=== PATIENT | female | born 1975 | race Caucasian/White ===

== ENCOUNTER 2020-09-19 09:41 | Outpatient (REF) | payer BC, SELFPAY ==
[2020-09-19 17:33] LABS: Anion Gap 11.1 mmol/L (3-11); BUN 13 mg/dL (7-18); CO2 24.9 mmol/L (21.0-32.0); CREATININE 0.7 mg/dL (0.55-1.02); Calcium 8.9 mg/dL (8.5-10.1); Calculated LDL 75 mg/dL (<100); Chloride 103 mmol/L (98-107); Cholesterol 144 mg/dL (<200); Glucose 83 mg/dL (74-106); HDL Cholesterol 62 mg/dL (40-60); Potassium 4.6 mmol/L (3.5-5.1); Sodium 139 mmol/L (136-145); Triglyceride 39 mg/dL (<150)
== END 2020-09-19 09:42 | disposition home or self-care (01) ==
LOC: NCHCN 09:41
PROVIDERS: PCP Family Medicine; Visit Provider Nurse Practitioner Family
DX: Z00.00 Encounter for general adult medical examination without abnormal findings (principal); Z13.228 Encounter for screening for other metabolic disorders; Z13.220 Encounter for screening for lipoid disorders
CPT/HCPCS: 80048; 80061

== ENCOUNTER 2020-11-08 17:08 | Outpatient (REF) | payer BC, SELFPAY ==
--- NOTE | 2020-11-08 16:30 | PAPFT_PTH ---
PATIENT: Ramila Curtis LOC: [facility] U#:[id number] AGE/SX: 45/F ROOM: RE11/08/[address]: Charissa Mckeon : 1975 BED: DIS: 11/08/2020 SPEC #: [id number] RECD: 11/09/20 12:56 STATUS: SHANIQUE REPatricio #: [id number] CARYN: 11/08/20 16:[address]: Charissa Mckeon DEPT: [facility] Cytology RECD BY: Yokasta Knight ENTERED: 11/09/20 12:57 SP TYPE: PAPFT OTHR DR: Deepa Gray Tissues: 1 - CX/ENDOCX FOR PAP SMEARS Procedures: PAP THIN PREP/UVM Screening HPV DNA PROBE Comments: [id number]
== END 2020-11-08 17:09 | disposition home or self-care (01) ==
LOC: NCHCN 17:08
PROVIDERS: PCP Family Medicine; Visit Provider Nurse Practitioner Family
DX: Z00.00 Encounter for general adult medical examination without abnormal findings (principal); Z12.4 Encounter for screening for malignant neoplasm of cervix; Z11.51 Encounter for screening for human papillomavirus (HPV)
CPT/HCPCS: 88142; 87624

== ENCOUNTER → 2022-01-25 01:06 | Outpatient (CLI) | payer BC, SELFPAY ==
--- NOTE | 2022-01-25 | DI.MAMMO_ITS ---
Exam(s) MAMMO SCREENING EXAM: MAMMO SCREENING CLINICAL HISTORY: SCREENING, Z12.39. TECHNIQUE: Bilateral full field digital CC and MLO mammographic images were obtained with 3D tomosyn thesis and utilizing computer aided detection (CAD). COMPARISON: None. Baseline mammogram on 46-year-old patient. FINDINGS: Fibroglandular tissue pattern is very dense, this somewhat decreasing the sensitivity mammogram for f inding hidden underlying lesions. There are no obvious spiculated masses. Numerous benign-appearing microcalcifications are seen in tameka th breasts. There are no malignant-appearing microcalcification groups. There is no significant architectural distortion nor skin thickening-retraction. IMPRESSION: Dense bilateral fibroglandular tissue. No obvious radiographic evidence of malignancy. Given the de nsity of this patient's fibroglandular tissue and significant family history I feel would be prudent to perform screening bilateral breast ultrasound BI-RADS Category 0 - Assessment Incomplete: Need additional imaging evaluation Breast Density - Category D - Extremely dense Breast density Category C or D implies that the patient has dense breast tissue. Dense breast tissue can make it harder to find cancer on a mammogram. Dense breast tissue is also associated with an incr eased risk of breast cancer. This information about the result of the mammogram report was provided to the patient to raise their awareness. Use this report when you speak with the patient about their risks for breast cancer, which includes their family history. At that time, you may recommend additional screening tests (Ultrasoun d or MRI) as these tests may add significant information. A negative radiographic report should not delay biopsy if a dominant or clinically suspicious mass is present. Up to ten percent of cancers are not identified on mammography. A negative report may reinforce clinical impression. Adenosis and dense breasts may obscure an underlying neoplasm. False positive reports average 6 to 10%. Patient will receive a letter notifying them of these results.
== END ==
PROVIDERS: PCP Family Medicine; Visit Provider Nurse Practitioner Family
DX: Z12.31 Encounter for screening mammogram for malignant neoplasm of breast (principal); R92.0 Mammographic microcalcification found on diagnostic imaging of breast; Z80.3 Family history of malignant neoplasm of breast
CPT/HCPCS: 77063; 77067

== ENCOUNTER → 2022-02-04 02:05 | Outpatient (CLI) | payer BC, SELFPAY | PROVIDERS: PCP Family Medicine; Visit Provider Nurse Practitioner Family ==

== ENCOUNTER → 2023-05-28 02:19 | Outpatient (CLI) | payer BC, SELFPAY ==
--- NOTE | 2023-05-28 08:55 | DI.MAMMO_ITS ---
Exam(s) MAMMO SCREENING EXAM: MAMMO SCREENING CLINICAL HISTORY: SCREENING, Z12.39,FAMILY H/O BREAST CA,Z80.3. TECHNIQUE: Bilateral full field digital CC and MLO mammographic images were obtained with 3D tomosyn thesis and utilizing computer aided detection (CAD). COMPARISON: 2021 FINDINGS: Masses/Architectural Distortion: None seen. Microcalcifications: No suspicious pleomorphic-type are seen. Scattered bilateral benign calcificat ions again noted. Skin Thickening/Nipple Retraction: None. IMPRESSION: 1. No significant interval change with no specific features of malignancy noted. 2. Unless there is more urgent need, annual screening mammography is recommended, as per [place] [employer] guidelines. BI-RADS Category 2 - Benign Findings Breast Density - Category D - extremely dense Breast Density Category D: The mammogram demonstrates the patient's breast tissue is dense. Dense eugenia ast tissue is very common and is not abnormal but dense breast tissue can make it harder to find canc er on a mammogram. Also, dense breast tissue may increase their breast cancer risk. This information about the result of the mammogram report was provided to the patient to raise their awareness. Use th is report when you speak with the patient about their risks for breast cancer, which includes their f amily history. At that time, you may recommend for more screening tests (Ultrasound or MRI) as they m ight be useful based on their risk. A negative radiographic report should not delay biopsy if a dominant or clinically suspicious mass is present. Up to ten percent of cancers are not identified on mammography. A negative report may reinforce clinical impression. Adenosis and dense breasts may obscure an underlying neoplasm. False positive reports average 6 to 10%.
== END ==
PROVIDERS: PCP Family Medicine; Visit Provider Nurse Practitioner Family
DX: Z12.31 Encounter for screening mammogram for malignant neoplasm of breast (principal); R92.343 Mammographic extreme density, bilateral breasts; Z80.3 Family history of malignant neoplasm of breast
CPT/HCPCS: 77063; 77067

== ENCOUNTER 2023-09-07 10:57 | Emergency (ER) | payer BC, SELFPAY ==
[2023-09-07 11:06] VITALS: BP 133/69; PULSE 96; RESP 20; TEMP 36.8; O2SAT 100
--- NOTE | 2023-09-07 11:45 | DI.CT_ITS ---
Exam(s) CT ABDOMEN PELVIS W EXAM: CT ABDOMEN PELVIS W CLINICAL HISTORY: right sided abdominal pain. TECHNIQUE: Imaging Protocol: Axial computed tomography images with coronal and sagittal reformatted images were created and reviewed CONTRAST MATERIAL: Intravenous: Omnipaque 350 Contrast volume:100 ml Oral: yes / no COMPARISON: No exams were available for comparison FINDINGS: ABDOMEN and PELVIS: Lung Bases: No acute findings. Liver: Normal density. No measurable mass. Gallbladder and biliary tract: No radiodense calculus or dilation. Pancreas: Normal density. No abnormal calcifications or inflammatory process. No evidence of mass. Spleen: Normal. Kidneys: Normal size, contour and axis. No radiodense stones. No obstructive uropathy. No suspicious masses seen. Adrenal glands: No masses seen. Vasculature: Abdominal aorta non-dilated. Soft tissues: Unremarkable. Bladder: No gross wall thickening. No calculi.No focal mass. Bowel: Large quantity of stool in the majority of the colon, with the exception of the cecum. There is marked inflammation wall thickening involving the ascending colon 2 hepatic flexure. No obstructi on. No small bowel wall thickening or abnormal distension. Appendix normal. Peritoneal cavity: Fluid seen low in pelvis. No focal collection . Bones: Unremarkable for age. Reproductive organs: Within normal limits. Left ovarian dominant follicle. Lymph nodes: Unremarkable. IMPRESSION:: Findings consistent with colitis of the ascending colon and to hepatic flexure. Append ix appears normal. Small amount of fluid in pelvis and right paracolic gutter. No abscess. RADIATION DOSE DELIVERED: Total DLP DATA REPOSITORY: All CT scans at this facility are submitted to the National Radiology Data Registry (NRDR) Dose Index Registry (DIR) with the [employer] [place] [employer] (ACR). RADIATION OPTIMIZATION: All CT scans at this facility use at least one of these dose optimization te chniques: automated exposure control; mA and/or kV adjustment per patient size (includes targeted exa ms where dose is matched to clinical indication); or iterative reconstruction.
--- NOTE | 2023-09-07 11:54 | W.ED.GENAD ---
HPI General Date/Time Provider Initiated Documentation: 09/07/23 11:53. Limitations to Documentation: no limitations. Information obtained by: patient and RN notes reviewed. History of Present Illness 48 year old F presents to the emergency department with the chief complaint of right sided abdominal pain, described as moderate, with intensity rated at 6. Quality is described as aching, and is localized to the abdomen. Patient reports no radiation. Patient started experiencing this day(s) (4-5) and it has been constant. Immobilization improves symptom(s), Movement worsens symptoms (bumps in car) . Patient notes loss of appetite; denies chest pain, cough, fever/chills, nausea/vomiting and shortness of breath. Patient did receive the following treatments prior to arrival, none Related Data Home Medications Medication Instructions Recorded Confirmed fluconazole 150 mg tablet 150 mg PO ONCE #1 tab 09/07/23 metronidazole 500 mg tablet 500 mg PO TID 10 days #30 tabs 09/07/23 sulfamethoxazole 800 1 tab PO BID 10 days #20 tabs 09/07/23 mg-trimethoprim 160 mg tablet Previous Rx's Medication Instructions Recorded fluconazole 150 mg tablet 150 mg PO ONCE #1 tab 09/07/23 metronidazole 500 mg tablet 500 mg PO TID 10 days #30 tabs 09/07/23 sulfamethoxazole 800 1 tab PO BID 10 days #20 tabs 09/07/23 mg-trimethoprim 160 mg tablet Allergies Allergy/AdvReac Type Severity Reaction Status Date / Time mushroom Allergy Other (See Verified 09/07/23 11:09 Comment) General Stated Complaint: Abd Prob BUCK: 3 Review of Systems Constitutional Constitutional: Reports as per HPI, Denies chills and Denies fever(s) Cardiovascular Cardiovascular: Reports as per HPI, Denies chest pain and Denies dyspnea Respiratory Respiratory: Reports as per HPI, Denies cough and Denies dyspnea Gastrointestinal Gastrointestinal: Reports as per HPI Musculoskeletal Musculoskeletal: Reports as per HPI and Denies back pain Integumentary/Breasts Skin/Breast: Reports as per HPI and Denies rash Neurologic Neurologic: Reports as per HPI Exam Const General: cooperative, healthy appearing, comfortable, no acute distress and well developed Nutritional Appearance: average body habitus and well nourished Orientation: alert and awake HENMT Head: normal to inspection Mouth: moist mucous membranes Resp Effort & Inspection: normal respiratory effort, able to speak in complete sentences and no respiratory distress Auscultation: clear to auscultation bilaterally, no rales, no rhonchi and no wheezes Cardio Rate: regular rate Rhythm: regular rhythm Heart Sounds: S1 normal and S2 normal GI Inspection: normal to inspection Palpation: soft, no hepatosplenomegaly, guarding, no hernias, no masses, not rigid and tender in the RUQ and Roy's sign positive; not at McBurney's point, not periumbilically, psoas sign negative and with no rebound tenderness Percussion: normal to percussion Auscultation: hypoactive bowel sounds Back/Spine/Pelvis Back: no CVA tenderness Skin General skin exam: no rashes or lesions noted Trauma: no lacerations or abrasions Neuro General: patient alert and patient awake Cognition: normal cognition Speech: speech normal Gait: normal gait Course Vital Signs Vital signs: Vital Signs Temperature 36.8 C 09/07/23 11:06 Pulse 96 H 09/07/23 11:06 Respiratory Rate 20 09/07/23 11:06 Blood Pressure 133/69 09/07/23 11:06 Pulse Oximetry 100 09/07/23 11:06 Temperature 36.8 C 09/07/23 11:06 Temperature Source Oral 09/07/23 11:06 Pulse 96 H 09/07/23 11:06 Respiratory Rate 20 09/07/23 11:06 Respiratory Effort Normal, Non-Labored 09/07/23 11:18 Blood Pressure 133/69 09/07/23 11:06 Blood Pressure Position Sitting 09/07/23 11:06 Pulse Oximetry 100 09/07/23 11:06 Oxygen Delivery Method Room Air 09/07/23 11:06 Oxygen Flow Rate 0 09/07/23 11:06 Pain Level 6 09/07/23 11:06 Medical Decision Making Patient is a pleasant 48-year-old female, otherwise healthy, presenting today with chief complaint of right-sided abdominal pain that began 4 days ago. She reports that initially pain was nonfocal, felt more like gas pain. However, the pain became more and more localized to the right side of the abdomen. She denies any nausea or vomiting but states that her appetite has greatly diminished, has not had much to eat in the last 24 hours. This atypical for the patient. Pain is not worsened with food. Her last bowel movement was 2 days ago. Denies any abnormal vaginal discharge. Denies , states that she is not having intercourse. No change in urinary habits. Denies any back pain. No previous abdominal surgeries. On exam, patient appears nontoxic. Resting comfortably. She is slightly tachycardic heart rate of 96. Lungs are clear, normal cardiac exam otherwise. Abdomen is tender along the right side, more in the right upper and mid area. No pain over McBurney's point. Pain is more in the upper area, more concerning for gallbladder. She does have a positive Roy's. Patient's exam is more consistent with gallbladder pathology. However, her history of more consistent and progressive pain, no change in p.o. intake, has been more concerned for an appendicitis. Considered a flipped appendix that is not the classic location. I feel that moving forward with CT is appropriate at this time. Also obtain baseline labs. No alcohol intake. Labs significant for WBC 12.3, ketones and blood in urine. FINDINGS: Lungs: Lung bases are clear. Pleural effusion is not seen. Liver: There mild fatty infiltration of the liver. There is a tiny focus of low attenuation left lobe of the liver measuring approximately 4 mm in diameter likely a small cyst. No other focal intrahepatic abnormality is identified. Gallbladder and bile ducts: No calcified gallstones. Possible mild gallbladder wall thickening. There is no significant biliary ductal dilatation. Pancreas: Pancreas is unremarkable Spleen: Spleen is unremarkable Adrenal glands: Adrenals are unremarkable Kidneys and ureters: No radiopaque urinary tract calculi. No hydronephrosis. Stomach and bowel: Evaluation of the bowel is limited in the absence of oral contrast. There is possible wall thickening involving the colon particularly at the hepatic flexure and involving the proximal transverse colon.. Findings could be related to colitis or enteritis. There is no evidence of bowel obstruction. There is no discrete mass or pneumatosis.Appendix: The appendix is visualized in the right lower quadrant and contains air. There is no evidence of acute appendicitis. Intraperitoneal space: Small amount of ascites is noted in the right abdomen particularly adjacent to the right colon, and the paracolic gutter. Ascites is also seen in the pelvic cul-de-sac. No drainable collection. No free intraperitoneal air. Vasculature: Unremarkable. No abdominal aortic aneurysm. Lymph nodes: Unremarkable. No enlarged lymph nodes. Urinary bladder: The bladder is nondistended. Apparent bladder wall thickening may be due to lack of distension. Reproductive: There are small nabothian cysts within the cervix. The uterus is anteverted. There is a dominant cyst/follicle within the left ovary measuring approximately 2.6 cm in diameter on series 5, image 629. There is no evidence of a solid adnexal mass. Bones/joints: There is no acute bony abnormality Soft tissues: Subcutaneous soft tissues are unremarkable IMPRESSION: 1. Small amount of ascites particularly within the right abdomen, pelvis. No discrete or drainable collection or abscess. 2. Evaluation of the bowel is limited without oral contrast but there is possible wall thickening involving the colon particularly right colon at the hepatic flexure, proximal transverse colon.. Findings could be related to colitis or enteritis. No evidence of bowel obstruction. 3. Left adnexal cyst likely physiologic in a patient of this age. Will consult with general surgery. General surgery reveiwed the imaging, they advised more diffuse. advised PO abx x 1 week, stool softener, outpatient f/u with plan for colonoscopy. They advised Mirilax. They came to see the patient, gave card and number to call to ensure that joy will get colonoscopy in about a month. Discussed plan with patient. She will begin abx, will use Bactrim and Flagyl per UTD. She states she gets vaginal yeast infections with abx, will prescribe fluconazole. Encouraged probiotics. Return precautions discussed. Encoruaged hyration. All of her questions and concerns were addressed, she is in agreement with this plan. Quality:[facility] Health Related Social Needs: No Data to Display PFSH All Active Problems (Updated 09/07/23 @ 14:45 by ALLEN Leonard) Constipation (Acute) Colitis (Acute) Abdominal pain (Acute) Social History Smoking/Tobacco Use Status: Never Smoking risk assessment performed?: Yes Alcohol Intake: never Substance use type: does not use Discharge Plan Disposition Patient Disposition: Home Condition: Good Discharge Details Clinical Impression: Colitis, Abdominal pain, Constipation Primary Care Provider: Eunice Hong ED Provider: Shonna Carney Home Meds and New Rx's Prescriptions: New sulfamethoxazole-trimethoprim 800-160 mg tablet 1 tab PO BID 10 Days Qty: 20 0RF metronidazole 500 mg tablet 500 mg PO TID 10 Days Qty: 30 0RF fluconazole 150 mg tablet 150 mg PO ONCE Qty: 1 0RF Rx Instructions: as a single dose Discharge Instructions Instructions: Constipation (ED), Abdominal Pain (ED) Additional Instructions: Your imaging is concerning for colitis which is inflammation of the colon. This is often infectious, general surgery team recommends oral antibiotics. These have been sent to your pharmacy. Please encourage hydration. Please take a probiotic while you are taking this. If you develop yeast infection, fluconazole has also been sent to your pharmacy. You can take this if symptoms develop. Once the acute inflammation is improved, you will need a colonoscopy. A referral to surgical team has been sent. You were noted to be constipated which may be contributing to your discomfort. Please take Miralax for this, it is available over the counter. Take as directed on the packaging. If you develop fevers/chills, increased pain, inability to stay hydrated or other new/worsening symptoms, please seek care urgently once again. Otherwise, please follow up with surgical team in the next 2 weeks. Stand Alone Forms: Work Release Referrals: Eunice Hong [Primary Care Provider] - Discharge Data Discharge Date/Time-TO BE ENTERED AT DEPARTURE: 09/07/23 15:09
[2023-09-07] MEDS: Normal Saline 1,000 ML 1000 ML IV (12:09)
[2023-09-07 12:13] LABS: Abs Immature Grans 0.04 10^3/uL (0.0-0.06); Absolute Basophil Count 0.06 10^3/uL (0.0-0.2); Absolute Eosinophil Count 0.07 10^3/uL (0.0-0.7); Absolute Lymphocyte Count 2.05 10^3/uL (1.2-3.4); Absolute Monocyte Count 0.72 10^3/uL (0.1-0.8); Basophils % 0.5; Eosinophils % 0.6; HCT 38.9 % (36.0-46.0); HGB 12.8 g/dL (11.2-15.7); Immature Grans % 0.3; Lymphocytes % 16.6; MCH 29.5 pg (27.0-33.0); MCHC 32.9 % (32.0-36.0); MCV 90 fL (80-95); MPV 12.1 fL (8.0-11.0); Monocytes % 5.8; Neutrophils % 76.2; Platelet Count 240 10^3/uL (130-400); RBC 4.34 10^6/uL (3.93-5.22); RDW 13.1 % (11.7-14.6); WBC 12.33 10^3/uL (4.4-10.8)
[2023-09-07 12:28] LABS: ALT 48 U/L (14-59); AST 33 U/L (15-37); Albumin 3.6 g/dL (3.4-5.0); Alkaline Phosphatase 68 U/L (46-116); Anion Gap 9.8 mmol/L (3-11); BUN 7 mg/dL (7-18); Bilirubin, Total 0.8 mg/dL (0.2-1.0); CO2 27.2 mmol/L (21.0-32.0); CREATININE 0.7 mg/dL (0.55-1.02); Calcium 8.9 mg/dL (8.5-10.1); Chloride 102 mmol/L (98-107); Estimated GFR 107.28 (mL/min/1.73m2); Glucose 97 mg/dL (74-106); Lipase 30 U/L (16-77); Magnesium 2.1 mg/dL (1.8-2.4); Potassium 3.5 mmol/L (3.5-5.1); Sodium 139 mmol/L (136-145); Total Protein 7.8 g/dL (6.4-8.2)
[2023-09-07 12:32] LABS: Bilirubin Negative (Negative); Blood Trace-lysed (Negative); Clarity Clear (Clear); Glucose Negative (Negative); Ketones 15 mg/dL (Negative); Leukocyte Esterase Negative (Negative); Nitrite Negative (Negative); Specific Gravity 1.015 (1.005-1.025); Urobilinogen 0.2 mg/dL (Up to 0.2); pH 6.5 (5-8)
[2023-09-07] MEDS: Omnipaque 350 MG/ML 100 ML BTL IJ (12:35)
[2023-09-07] MEDS: Normal Saline - Diluent 50 ML VIAL IJ (12:35)
[2023-09-07 12:40] LABS: Bacteria Negative HPF (Negative); C & S Indicated? No; Casts Negative LPF (Negative); Crystals Negative HPF (Negative); Epithelial Cells Many HPF (Negative); Mucus Negative (Negative); WBC 0-2 HPF (0-5)
--- NOTE | 2023-09-07 13:05 | DI.VRAD_ITS ---
PROCEDURE INFORMATION: Exam: CT Abdomen And Pelvis With Contrast Exam date and time: 09/07/2023 12:30 PM Age: 48 years old Clinical indication: Other: Right sided abdominal pain TECHNIQUE: Imaging protocol: Computed tomography of the abdomen and pelvis with contrast. Radiation optimization: All CT scans at this facility use at least one of these dose optimization techniques: automated exposure control; mA and/or kV adjustment per patient size (includes targeted exams where dose is matched to clinical indication); or iterative reconstruction. Contrast material: OMNI 350; Contrast volume: 100 ml; Contrast route: INTRAVENOUS (IV); COMPARISON: No relevant prior studies available. FINDINGS: Lungs: Lung bases are clear. Pleural effusion is not seen. Liver: There mild fatty infiltration of the liver. There is a tiny focus of low attenuation left lobe of the liver measuring approximately 4 mm in diameter likely a small cyst. No other focal intrahepatic abnormality is identified. Gallbladder and bile ducts: No calcified gallstones. Possible mild gallbladder wall thickening. There is no significant biliary ductal dilatation. Pancreas: Pancreas is unremarkable Spleen: Spleen is unremarkable Adrenal glands: Adrenals are unremarkable Kidneys and ureters: No radiopaque urinary tract calculi. No hydronephrosis. Stomach and bowel: Evaluation of the bowel is limited in the absence of oral contrast. There is possible wall thickening involving the colon particularly at the hepatic flexure and involving the proximal transverse colon.. Findings could be related to colitis or enteritis. There is no evidence of bowel obstruction. There is no discrete mass or pneumatosis. Appendix: The appendix is visualized in the right lower quadrant and contains air. There is no evidence of acute appendicitis. Intraperitoneal space: Small amount of ascites is noted in the right abdomen particularly adjacent to the right colon, and the paracolic gutter. Ascites is also seen in the pelvic cul-de-sac. No drainable collection. No free intraperitoneal air. Vasculature: Unremarkable. No abdominal aortic aneurysm. Lymph nodes: Unremarkable. No enlarged lymph nodes. Urinary bladder: The bladder is nondistended. Apparent bladder wall thickening may be due to lack of distension. Reproductive: There are small nabothian cysts within the cervix. The uterus is anteverted. There is a dominant cyst/follicle within the left ovary measuring approximately 2.6 cm in diameter on series 5, image 629. There is no evidence of a solid adnexal mass. Bones/joints: There is no acute bony abnormality Soft tissues: Subcutaneous soft tissues are unremarkable IMPRESSION: 1. Small amount of ascites particularly within the right abdomen, pelvis. No discrete or drainable collection or abscess. 2. Evaluation of the bowel is limited without oral contrast but there is possible wall thickening involving the colon particularly right colon at the hepatic flexure, proximal transverse colon.. Findings could be related to colitis or enteritis. No evidence of bowel obstruction. 3. Left adnexal cyst likely physiologic in a patient of this age. Dictated and Authenticated by: Jacey Cooney MD. Ordering:IDA Kilpatrick MD
--- NOTE | 2023-09-07 14:31 | NUR.NOTE ---
Referral Faxed to [facility] for Pt to schedule a Colonoscopy in about a month.
--- NOTE | 2023-09-07 14:33 | W.SURGCON ---
Date of service: 09/07/23 Time of Service: 14:33 Assessment and Plan Assessment and plan (1) Abdominal pain: Status: Acute Assessment and plan: Patient reportedly HD stable and with focal tenderness without peritoneal signs. Labwork unremarkable - minimal leukocytosis with no shift. I reviewed the CT scan images. Ascending colon in and thru the flexure and into the proximal transverse colon is thickened and lumen diameter is small. No free air. Small amount of free fluid. Cecum looks unaffected as does the appendix. Ddx: Inflammatory bowel disease, colon cancer, R-sided diverticulitis, ischemic colitis unlikely at hepatic flexure but possible, less-likely infectious colitis. Recommend: #5-7 day course of oral abx #Oral OTC laxatives #Colonoscopy in 4-6 weeks - should call and schedule it tomorrow thru the surgery office. # if pain worsens(5 days already) or obstructive symptoms(vomiting and distention) develop, should return to the ED History of Present Illness Narrative: Called by ED physician for patient with CT scan findings concerning for colitis. By report, patient has 5 days of abdominal pain. No diarrhea. Some constipation. PFSH All Active Problems (Updated 09/07/23 @ 14:34 by Robel Weinstein MD) Abdominal pain (Acute) Social History Smoking/Tobacco Use Status: Never Smoking risk assessment performed?: Yes Alcohol Intake: never Substance use type: does not use Results Last Vital Signs Temp 98.2 F 09/07/23 11:06 Pulse 96 H 09/07/23 11:06 Resp 20 09/07/23 11:06 BP 133/69 09/07/23 11:06 Pulse Ox 100 09/07/23 11:06 Labs 09/07/23 11:15 09/07/23 11:15 Labs: Laboratory Results - last 24 hr 09/07/23 09/07/23 11:15 12:15 WBC 12.33 H RBC 4.34 Hgb 12.8 Hct 38.9 MCV 90 MCH 29.5 MCHC 32.9 RDW 13.1 Plt Count 240 MPV 12.1 H Immature Gran % 0.3 Neutrophils % 76.2 Lymphocytes % 16.6 Monocytes % 5.8 Eosinophils % 0.6 Basophils % 0.5 Nucleated RBC % 0.0 Absolute Neutrophils 9.40 H Absolute Lymphocytes 2.05 Absolute Monocytes 0.72 Absolute Eosinophils 0.07 Absolute Basophils 0.06 Sodium 139 Potassium 3.5 Chloride 102 Carbon Dioxide 27.2 Anion Gap 9.8 BUN 7 Creatinine 0.7 Est GFR (CKD-EPI 2020) 107.28 Glucose 97 Calcium 8.9 Magnesium 2.1 Total Bilirubin 0.8 AST 33 ALT 48 Alkaline Phosphatase 68 Total Protein 7.8 Albumin 3.6 Lipase 30 Urine Color Yellow Urine Clarity Clear Urine pH 6.5 Ur Specific [place] 1.015 Urine Protein Negative Urine Ketones 15 H Urine Blood Trace-lysed H Urine Nitrite Negative Urine Bilirubin Negative Urine Urobilinogen 0.2 Ur Leukocyte Esterase Negative Urine RBC 3-5 H Urine WBC 0-2 Ur Epithelial Cells Many Urine Crystals Negative Urine Bacteria Negative Urine Casts Negative Urine Mucus Negative Ur Culture Indicated? No Urine Glucose Negative
== END 2023-09-07 15:09 | disposition home or self-care (01) ==
PROVIDERS: Emergency Provider Physician Assistant; PCP Nurse Practitioner Family
DX: R10.11 Right upper quadrant pain (principal); K52.9 Noninfective gastroenteritis and colitis, unspecified; K59.00 Constipation, unspecified
CPT/HCPCS: 00123; 36415; 80053; 83690; 96360; 99285; 74177; 81003; 81015; 83735; 85025; 99284; J3490

== ENCOUNTER 2023-10-20 11:28 | Day surgery (SDC) | payer BC, SELFPAY ==
--- NOTE | 2023-10-20 11:56 | W.ANESPRE ---
General Info Date of Service Date Performed: 10/20/23 Height: 5 ft 3 in Weight: 47.287 kg Body Mass Index (BMI): 18.4 Surgical Procedure: Operation Date: 10/20/23 13:05 Proposed Procedure Side Surgeon p Manish Weinstein MD Meds Allergies and Home Medications Allergies Allergy/AdvReac Type Severity Reaction Status Date / Time mushroom AdvReac gas Verified 10/20/23 11:55 Current Visit Medications: Current Medications Generic Name Dose Route Start Last Admin Trade Name Freq PRN Reason Stop Dose Admin Ringer's Solution 1,000 mls @ 80 mls/hr 10/20/23 06:00 IV 11/16/23 23:59 INFUSION KETTY IV Miscellaneous Supplies 1 each 10/20/23 06:00 Iv Access IV 11/16/23 23:59 DIRECTED KETTY Sodium Chloride 0 ml 10/20/23 06:00 Normal Saline Flush 10 Ml Syr IV 11/16/23 23:59 PRN PRN Sodium Chloride 0 ml 10/20/23 06:00 Normal Saline 10 Ml Vial IJ 11/16/23 23:59 DIRECTED PRN Sterile Water 0 ml 10/20/23 06:00 Water,Injection,Sterile 10 Ml Vial IJ 11/16/23 23:59 DIRECTED PRN PFSH Surgical History Surgical History History of loop electrical excision procedure (LEEP) Hx of wisdom tooth extraction Tobacco Smoking/Tobacco Use Status: Never Alcohol Alcohol Intake: never Substance Use Substance use: Never Substance use type: does not use Vital Signs and Lab Results Vital Signs Most Recent Vital Signs in EMR: Temp Pulse Resp BP Pulse Ox 36.7 C 67 16 118/77 100 10/20/23 11:58 10/20/23 11:58 10/20/23 11:58 10/20/23 11:58 10/20/23 11:58 Lab Results Blood Type / Crossmatch: No Data to Display Complete Blood Count: No Data to Display Complete Metabolic Panel: No Data to Display Liver Function Panel: No Data to Display Coagulation Panel: No Data to Display Cardiac Panel: No Data to Display Arterial Blood Gas: No Data to Display Venous Blood Gas: No Data to Display Pancreas Panel: No Data to Display Thyroid Panel: No Data to Display Infectious Disease: No Data to Display Blood Cultures: No Data to Display Toxicology Panel: No Data to Display Panel: No Data to Display Anesthesia Assessment and Plan Anesthesia History Personal History: No History of Anesthesia Complications Family History: No Family History of Anesthesia Complications Exercise Tolerance Exercise Tolerance: Metabolic Equivalents>4 Pertinent Negatives Pertinent Negatives: No Symptoms of GERD Cardiac & Pulmonary Exam Cardiac Exam: Normal S1/S2 Heart Sounds Pulmonary Exam: Clear Bilateral Breath Sounds Implantable Cardiac Device Does patient have a Pacemaker or an ICD?: No Airway Exam Known Difficult Airway: No Mallampati Class: 1 Mouth Opening: Normal (> 3cm) Thyromental Distance: Greater than 3 cm Neck Range of Motion: Full ROM Neck Circumference: Normal Teeth Condition: Normal Dentition ASA Classification ASA Score: ASA 1 Emergency Case?: No NPO Status NPO Status: NPO Clears >2 hours, Solids >8 hours Status Status: Negative HCG Anesthesia Plan Resuscitation Status: Full Code Anesthesia Technique: General Anesthesia Airway Planned: Natural Airway Monitors Used: Standard Monitors
[2023-10-20 11:58] VITALS: BP 118/77; PULSE 67; RESP 16; TEMP 36.7; O2SAT 100
[2023-10-20] MEDS: Lactated Ringers 1,000 ML 80 ML IV (12:16)
--- NOTE | 2023-10-20 12:26 | COLE_ITS ---
Date of service: 10/20/23 Time of Service: 12:26 Colonoscopy Report Procedure Description: PROCEDURES PERFORMED: 1. Colonoscopy with cold forceps biopsies PREOPERATIVE DIAGNOSIS: Diagnostic colonoscopy POSTOPERATIVE DIAGNOSIS: Hepatic flexure diverticulosis SURGEON: Laura Weinstein MD INDICATION for procedure: The patient is a 48-year-old woman who has never had a colonoscopy before. She has had a couple of episodes of right upper quadrant abdominal discomfort which has shown some inflammation near and around the hepatic flexure of unknown significance. She has never had intra-abdominal surgery before. She does not have a family history of colon cancer. FINDINGS: The terminal ileum was normal. No polyps were found. No lesions. No inflammation. At the hepatic flexure is an isolated 10 cm segment of diverticular disease. It is highly unusual because it is isolated to only this location. There is no diverticular disease in the left colon or the sigmoid colon. The cecum and proximal ascending colon is also uninvolved. It is all in and around and about the hepatic flexure. I took cold forceps biopsies of the terminal ileum as well as random colon biopsies in various places of the mucosa though it looked normal visually. SURVEILLANCE interval/FOLLOW-UP: I advised the patient and educated the patient about right?sided diseases including appendicitis and cholecystitis. She may have future attacks of pain in this location and it is unusual, her diagnosis in this location that is. For colorectal cancer surveillance, she should have another colonoscopy in 10 years. SPECIMENS: yes EBL: Minimal COMPLICATIONS: None QUALITY of prep: Excellent Procedure in detail: The patient gave written consent and was in agreement with the indications, the potential risks as well as the benefits of the procedure. They were taken to the endoscopy suite and laid in the left lateral decubitus position. A timeout was performed and anesthesia was administered which was tolerated well. I started the procedure. Digital rectal and visual examination was performed and grossly within normal limits. A well-lubricated flexible colonoscope was then introduced and passed without any notable difficulty all the way to the cecum identified by the il eocecal valve and the appendiceal orifice. The terminal ileum was intubated and looked normal. The scope was then slowly withdrawn with the above-noted findings. The patient tolerated the procedure well and was taken to the PACU in hemodynamically stable condition.
[2023-10-20 12:27] VITALS: BMI 18.4
--- NOTE | 2023-10-20 12:27 | PDOC.DSDIS_ITS ---
Date of service: 10/20/23 Time of Service: 12:27 Discharge Plan Disposition Patient Disposition: Home Condition: Good Discharge Details Attending Provider: Robel Weinstein Primary Care Provider: Eunice Hong Discharge Instructions Additional Instructions: FINDINGS: Diverticular disease was found at that corner of your colon. This is highly unusual in location. The disease is extremely common, benign, and nothing would otherwise need to be done about it. In your case it is extremely unusual where it is located but nonetheless, this is a benign condition. Nothing should be done about this at this time. If you continue to have recurrent attacks, that segment of your colon may need to be resected. Only time will tell. Outside of these findings, another colonoscopy should be done in 10 years for co lorectal cancer screening/surveillance. This is completely unrelated to the findings today. Stand Alone Forms: Anesthesia Discharge Inst., Colonoscopy Post Instructions, Og Walls ([facility]) Activity:: Activity as Tolerated Diet:: As Tolerated
--- NOTE | 2023-10-20 12:57 | BOWEL_PTH ---
PATIENT: Ramila Curtis LOC: [facility] U#:[id number] AGE/SX: 48/F ROOM: RE10/20/[address]: Robel Weinstein : 1975 BED: DIS: 10/20/2023 SPEC #: [id number] RECD: 10/20/23 16:52 STATUS: SHANIQUE REQ #: [id number] CARYN: 10/20/23 12:[address]: Robel Weinstein DEPT: Surgical Specimen RECD BY: Yokasta Knight ENTERED: 10/20/23 16:53 SP TYPE: Bowel OTHR DR: CHRISTOPHER WALL Tissues: 1 - BIOPSY BOWEL 2 - BIOPSY BOWEL 3 - BIOPSY BOWEL 4 - BIOPSY BOWEL 5 - BIOPSY BOWEL Procedures: GROSS AND MICRO LEVEL 4 Comments: [id number]
[2023-10-20 13:14] VITALS: BP 134/78; PULSE 64; RESP 16; TEMP 36.4; O2SAT 98
--- NOTE | 2023-10-20 13:25 | W.ANESPOSTOP ---
Postoperative Evaluation Date, Time and Location Date Performed: 10/20/23 Time Performed: 13:14 Patient Location: Day Surgery Unit Vital Signs Most Recent Imported Vital Signs: Most Recent Vital Signs Temp Pulse Resp BP Pulse Ox 36.4 C L 64 16 134/78 98 10/20/23 13:14 10/20/23 13:14 10/20/23 13:14 10/20/23 13:14 10/20/23 13:14 Pain Score Most Recent Pain Score: Most Recent Pain Score Pain Level 0 10/20/23 13:14 Assessment Mental Status: Awake (Alert & Oriented to Patient Baseline) Airway and Respiratory Function: Patent airway with normal (patient baseline) respiratory exam Cardiovascular Function: Hemodynamically Stable Hydration Status: Adequately Hydrated Nausea & Vomiting: No Nausea or Vomiting Pain: Pain is tolerable per patient Peripheral Nerve Block: Patient did not receive a nerve block
[2023-10-20 13:30] VITALS: BP 129/79; PULSE 72; RESP 16; TEMP 36.6; O2SAT 98
== END 2023-10-20 15:05 | disposition home or self-care (01) ==
PROVIDERS: PCP Nurse Practitioner Family; Visit Provider Student in an Organized Health Care Education/Training Program
PROC: 0DJD8ZZ Inspection of Lower Intestinal Tract, Via Natural or Artificial Opening Endoscopic (ICD-10-PCS; CPT 45378; principal; 2023-10-20 13:00)
DX: R10.11 Right upper quadrant pain (principal); K57.30 Diverticulosis of large intestine without perforation or abscess without bleeding
CPT/HCPCS: 45380; 00123; 81025; 88305; J2001; J2704

== ENCOUNTER 2024-06-28 02:02 | Outpatient (CLI) | payer BC, SELFPAY ==
--- NOTE | 2024-06-28 08:00 | DI.MAMMO_ITS ---
Exam(s) MAMMO SCREENING EXAM: MAMMO SCREENING CLINICAL HISTORY: SCREENING MAMMO Z12.31. TECHNIQUE: Bilateral full field digital CC and MLO mammographic images were obtained with 3D tomosyn thesis and utilizing computer aided detection (CAD). COMPARISON: 2021 and 2022 FINDINGS: Masses: None seen. Architectural Distortion: None seen. Microcalcifications: No suspicious pleomorphic-type are seen. Scattered benign calcifications again noted bilaterally. Skin Thickening/Nipple Retraction: None. IMPRESSION: 1. No significant interval change with no specific features of malignancy noted. 2. Unless there is more urgent need, annual screening mammography is recommended, as per [place] [employer] guidelines. BI-RADS Category 2 - Benign Findings Breast Density - Category D - extremely dense Breast Density Category D: The mammogram demonstrates the patient's breast tissue is dense. Dense eugenia ast tissue is very common and is not abnormal but dense breast tissue can make it harder to find canc er on a mammogram. Also, dense breast tissue may increase their breast cancer risk. This information about the result of the mammogram report was provided to the patient to raise their awareness. Use th is report when you speak with the patient about their risks for breast cancer, which includes their f amily history. At that time, you may recommend for more screening tests (Ultrasound or MRI) as they m ight be useful based on their risk. A negative radiographic report should not delay biopsy if a dominant or clinically suspicious mass is present. Up to ten percent of cancers are not identified on mammography. A negative report may reinforce clinical impression. Adenosis and dense breasts may obscure an underlying neoplasm. False positive reports average 6 to 10%.
== END 2024-06-28 02:22 ==
LOC: DI 02:03
PROVIDERS: PCP Nurse Practitioner Family; Visit Provider Nurse Practitioner Family
DX: Z12.31 Encounter for screening mammogram for malignant neoplasm of breast (principal); R92.343 Mammographic extreme density, bilateral breasts; D24.9 Benign neoplasm of unspecified breast
CPT/HCPCS: 77063; 77067

== ENCOUNTER 2025-05-24 21:46 | Outpatient (REF) | payer BC, SELFPAY ==
[2025-05-24 20:53] LABS: HCT 36.5 % (36.0-46.0); HGB 11.9 g/dL (11.2-15.7); MCH 29.4 pg (27.0-33.0); MCHC 32.6 % (32.0-36.0); MCV 90 fL (80-95); MPV 12.6 fL (8.0-11.0); Platelet Count 271 10^3/uL (130-400); RBC 4.05 10^6/uL (3.93-5.22); RDW 12.9 % (11.7-14.6); RDW-SD 42.5 fL; WBC 8.61 10^3/uL (4.4-10.8)
[2025-05-24 21:07] LABS: ALT 22 U/L (14-59); AST 13 U/L (15-37); Albumin 3.6 g/dL (3.4-5.0); Alkaline Phosphatase 49 U/L (46-116); Anion Gap 6.9 mmol/L (3-11); BUN 18 mg/dL (7-18); Bilirubin, Total 0.3 mg/dL (0.2-1.0); CO2 27.1 mmol/L (21.0-32.0); Calcium 8.6 mg/dL (8.5-10.1); Calculated LDL 73 mg/dL (<100); Chloride 102 mmol/L (98-107); Cholesterol 165 mg/dL (<200); Estimated GFR 90.27 (mL/min/1.73m2); Glucose 100 mg/dL (74-106); HDL Cholesterol 73 mg/dL (>or=50); Potassium 4.1 mmol/L (3.5-5.1); Sodium 136 mmol/L (136-145); Total Protein 7.2 g/dL (6.4-8.2); Triglyceride 98 mg/dL (<150)
== END 2025-05-24 21:47 | disposition home or self-care (01) ==
LOC: NCHCN 21:46
PROVIDERS: PCP Nurse Practitioner Family; Visit Provider Nurse Practitioner Family
DX: Z00.00 Encounter for general adult medical examination without abnormal findings (principal)
CPT/HCPCS: 80053; 80061; 85027

== ENCOUNTER → 2025-06-30 00:25 | Outpatient (CLI) | payer BC, SELFPAY ==
--- NOTE | 2025-06-30 07:56 | DI.MAMMO_ITS ---
Exam(s) MAMMO SCREENING EXAM: MAMMO SCREENING CLINICAL HISTORY: SCREENING ,Z12.31. TECHNIQUE: Bilateral full field digital CC and MLO mammographic images were obtained with 3D tomosynthesis and utilizing computer aided detection (CAD). COMPARISON: Prior mammograms were reviewed. FINDINGS: The fibroglandular tissue pattern is again noted be dense, this decreasing the sensitivity mammogram for finding hidden underlying lesions. Numerous benign-appearing microcalcifications are again noted throughout both breasts. There are no obvious new spiculated masses nor new malignant appearing microcalcification groups. There is no significant architectural distortion nor skin thickening-retraction. IMPRESSION: No radiographic evidence of malignancy. BI-RADS Category 1 - Negative Breast Density - Category D - The breast are extremely dense, which lowers the sensitivity of the mammography. Breast density Category C or D implies that the patient has dense breast tissue. Dense breast tissue can make it harder to find cancer on a mammogram. Dense breast tissue is also associated with an increased risk of breast cancer. This information about the result of the mammogram report was provided to the patient to raise their awareness. Use this report when you speak with the patient about their risks for breast cancer, which includes their family history. At that time, you may recommend additional screening tests (Ultrasound or MRI) as these tests may add significant information. A negative radiographic report should not delay biopsy if a dominant or clinically suspicious mass is present. Up to ten percent of cancers are not identified on mammography. A negative report may reinforce clinical impression. Adenosis and dense breasts may obscure an underlying neoplasm. False positive reports average 6 to 10%. Patient will receive a letter notifying them of these results.
== END ==
PROVIDERS: PCP Nurse Practitioner Family; Visit Provider Nurse Practitioner Family
DX: Z12.31 Encounter for screening mammogram for malignant neoplasm of breast (principal)
CPT/HCPCS: 77063; 77067